=== PATIENT | male | born 1970 | race Caucasian/White ===

== ENCOUNTER 2018-07-15 20:52 | Emergency (ER) | payer OTHER ==
[~2018-07-15] VITALS: Ht 185.4 cm; Wt 140.6 kg
[2018-07-15 21:12] VITALS: BP 128/85; Ht 185.4 cm; Wt 140.6 kg
== END 2018-07-15 23:20 | disposition left against medical advice (07) ==
LOC: ED 20:52
DX: Z53.21 Procedure and treatment not carried out due to patient leaving prior to being seen by health care provider (principal)